=== PATIENT | female | born 1990 | race Caucasian/White ===

== ENCOUNTER 2016-03-28 05:49 | Emergency (ER) | payer MEDICARE, BC, MEDICAID ==
[2016-03-28 06:23] LABS: Prothrombin Time 13.2 SEC (12.0-14.7)
[2016-03-28 06:26] LABS: Hematocrit 31.2 % (36.0-47.0); Mean Platelet Volume 6.2 fL (7.4-10.4); Red Blood Cell (RBC) Count 3.41 mill/uL (4.20-5.40); White Blood Cell (WBC) Count 5.5 thou/uL (4.8-10.8)
[2016-03-28 06:30] LABS: ALT (SGPT) 20 U/L (0-55); AST (SGOT) 17 U/L (5-34); Alkaline Phosphatase 96 U/L (40-150); Anion Gap 23 mmol/L (10-20); BUN (Urea Nitrogen) 58 mg/dL (7.0-18.7); Bilirubin, Total 0.7 mg/dL (0.2-1.2); Calc. Creatinine Clearance 0 mL/min (70-130); Calcium 11.1 mg/dL (7.8-10.44); Carbon Dioxide 30 mmol/L (22-29); Chloride 90 mmol/L (98-107); Estimated GFR-MDRD 3; Globulin 4.5 g/dL (2.4-3.5); Protein, Total 8.9 g/dL (6.0-8.3)
[2016-03-28 06:39] LABS: Neutrophil 43 % (42-75); Reactive Lymphocytes 4 % (0-10)
--- NOTE | 2016-03-28 08:21 | ERRECORD ---
[facility] EMERGENCY RECORD HPI SYNCOPE (06:16 [facility]) CHIEF COMPLAINT: Patient presents for evaluation of syncope. 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 Patient performed regular PD, but removed 2500cc of fluid rather than the normal 1300. She was feeling nauseous, and at 430 after a bowel movement she felt lightheaded then awoke on the bathroom floor. Currently she feels weak and lightheaded. Denies pain, denies blood in vomit or stool, denies chest or abdominal discomfort, denies fever at home. LOCATION: Symptoms are generalized. QUALITY: Symptom quality described as lightheadedness. TIME COURSE: Gradual onset of symptoms, There has been no change in the patient's symptoms over time. ASSOCIATED WITH: No associated abdominal pain, No associated back pain, No associated chest pain, No associated diarrhea, Associated with fall, from standing, No associated GI Bleed, Associated with weakness. EXACERBATED BY: Patient's condition exacerbated by nothing. RELIEVED BY: Nothing tried for relief. ROS (06:20 [facility]) CONSTITUTIONAL: Historian denies chills, denies fever, reports weakness. EYES: Negative eye review of systems, Historian denies eye pain, denies vision changes. ENT: Negative ears, nose, throat review of systems, Historian denies rhinorrhea, denies sore throat, denies voice changes. CARDIOVASCULAR: Historian denies chest pain, reports syncope, denies palpitations. RESPIRATORY: Negative respiratory review of systems, Historian denies cough, denies shortness of breath. GI: Negative gastrointestinal review of systems, Historian denies abdominal pain, denies constipation, denies diarrhea, denies nausea, denies vomiting. GENITOURINARY FEMALE: Negative genitourinary review of systems, Historian denies dysuria, denies frequency. MUSCULOSKELETAL: Negative musculoskeletal review of systems, Historian denies back pain, denies fall, denies injury. SKIN: Negative skin review of systems, Historian denies rash, denies skin changes. NEUROLOGIC: Negative neurologic review of systems, Historian denies headache, denies mental status changes, denies paralysis, denies paresthesias, denies sensory changes. HEMO/LYMPHATIC: Normal hematologic/lymphatic system review, Historian denies abnormal blood clotting. ALLERGIC/IMMUNOLOGIC: Normal allergy/immunologic system review, Historian denies frequent infections. &a-1R&a+25V*p+0X*m2076C*c202B*c15G*c2P*p-0X&a-25V&a+1R Name: Oumou Castro : 1990 F26 MedRec: [id number] AcctNum: [id number] Prepared: Corby Mar 28, 2016 08:31 by Interface Page 1 of 5 pMD [facility] EMERGENCY RECORD PAST MEDICAL HISTORY (05:59 [facility]IL) MEDICAL HISTORY: Flu vaccine up to date, Tetanus immunization up to date, Pneumococcal vaccine up to date, Flu vaccine up to date, Date of immunization: 09/2015, Tetanus immunization up to date, Pneumococcal vaccine up to date, Date of immunization: 2015, pt has hemodialysis qhs, Past medical history includes gastrointestinal disease, gastroesophageal reflux disease, H. Pylori, Past medical history includes endocrine disease, hypothyroidism, Past medical history includes end stage renal disease, Notes: tuberus sclerosis,. Past medical history includes renal disease, polycystic kidney, failure. reviewed 12/29/15. Notes: ESRD on dialysis, Tuberous Sclerosis, Past medical history includes endocrine disease, hypothyroidism, Past medical history includes history of hypertension. REVIEWED 02/06/16. REVIEWED 03/28/16. FEMALE SURGICAL HISTORY: dialysis port (PERITONEAL), hemo port, bilateral kidney removal. peritoneal dialysis port. Reviewed 12/29/15. bilateral nephrectomy, dialysis port, peritoneal dialysis catheter. REVIEWED 02/06/16. REVIEWED 03/28/16. PSYCHIATRIC HISTORY: Notes: NO PREVIOUS HX. REVIEWED 03/28/16. SOCIAL HISTORY: Patient denies alcohol use, Patient denies drug use, Patient has no smoking history. REVIEWED 02/06/16. REVIEWED 03/28/16. KNOWN ALLERGIES Bromfed tablet Singulair: Reaction: Hives CURRENT MEDICATIONS (07:19 LGIB) Sensipar: TABLET : Strength - 60 mg : ORAL Patient Dose: 120 mg Oral once a day. calcitriol: CAPSULE : Strength - 0.5 mcg : ORAL Patient Dose: 0.5 mcg Oral.EVERY OTHER DAY. levothyroxine: TABLET : Strength - 50 mcg : ORAL Patient Dose: 50 mcg Oral.except on sundays takes 100mcg once a day. omeprazole: CAPSULE,DELAYED RELEASE (ENTERIC COATED) : Strength - 20 mg : ORAL Patient Dose: 20 mg Oral 2 times a day. Vitamin D (with calcium): TABLET : Strength - 77 mg-400 unit : ORAL Patient Dose: 3000 units Oral once a day. medroxyPROGESTERone: TABLET : Strength - 2.5 mg : ORAL Patient Dose: Unknown.7 days once a month. ferrous sulfate: TABLET : Strength - 325 mg (65 mg iron) : ORAL &a-1R&a+25V*p+0X*m7130O*c202B*c15G*c2P*p-0X&a-25V&a+1R Name: Oumou Castro : 1990 F26 MedRec: [id number] AcctNum: [id number] Prepared: Corby Mar 28, 2016 08:31 by Interface Page 2 of 5 pMD [facility] EMERGENCY RECORD Patient Dose: 325 mg once a day. Renvela: TABLET : Strength - 800 mg : ORAL Patient Dose: 6 tab(s) Oral 3 times a day (with meals). carvedilol: TABLET : Strength - 6.25 mg : ORAL Patient Dose: 2 tab(s) Oral 2 times a day. VITAL SIGNS VITAL SIGNS: BP: 68/47, Pulse: 111, Resp: 21, Temp: 98.0 (Oral), Pain: 4, O2 sat: 98 on Room Air, Time: 03/28/2016 05:50. (05:50 MVIL) BP: 61/50, Pulse: 111, Resp: 20, O2 sat: 100 on Room Air, Time: 03/28/2016 05:56. (05:56 MVIL) BP: 72/42, Pulse: 91, Resp: 11, O2 sat: 98 on Room Air, Time: 03/28/2016 06:34. (06:34 MVIL) BP: 74/49, Pulse: 93, Resp: 16, O2 sat: 98 on Room Air, Time: 03/28/2016 06:45. (06:45 KMOR) BP: 75/47, Pulse: 85, Resp: 17 (Non-Labored), O2 sat: 98 on Room Air, Time: 03/28/2016 07:00. (07:00 LGIB) BP: 74/48, Pulse: 86, Resp: 18 (Non-Labored), O2 sat: 97 on Room Air, Time: 03/28/2016 07:30. (07:30 LGIB) Temp: 98.2 (Oral), Time: 03/28/2016 07:49. (07:49 LGIB) BP: 79/46, Pulse: 91, Resp: 17 (Non-Labored), O2 sat: 97 on Room Air, Time: 03/28/2016 07:45. (07:45 LGIB) BP: 88/53, Pulse: 88, Time: 03/28/2016 08:00. (08:00 LGIB) BP: 98/68, Pulse: 84, Resp: 18 (Non-Labored), O2 sat: 97 on Room Air, Time: 03/28/2016 08:06. (08:06 [facility]) PHYSICAL EXAM (06:20 [facility]) CONSTITUTIONAL: Vital Signs Reviewed, Patient afebrile, Pulse, tachycardic, Blood pressure, hypotensive, Respiratory rate normal, Patient appears non toxic, Patient appears pain free, Patient alert and oriented to person, place and time, Nursing notes reviewed. HEAD: Head exam normal, Head exam included findings of head atraumatic, normocephalic. EYES: Eye exam normal, Eye exam included findings of eyelids normal to inspection, Pupils equally round and reactive to light, Extraocular muscles intact, no nystagmus. ENT: ENT exam normal, Ear exam normal, external ear normal, tympanic membranes normal, no bleeding, Pharynx exam normal, Uvula exam normal, Tonsil exam normal, Mouth exam normal, mucous membranes moist, teeth normal. NECK: Neck exam normal, Neck exam included findings of normal range of motion, Trachea midline, no meningeal signs, no cervical adenopathy, no tenderness. RESPIRATORY CHEST: Respiratory and chest exam normal, Respiratory exam included findings of no respiratory distress, Breath sounds clear. CARDIOVASCULAR: Cardiovascular assessment normal, Cardiovascular &a-1R&a+25V*p+0X*v6619F*c202B*c15G*c2P*p-0X&a-25V&a+1R Name: Oumou Castro : 1990 [facility] MedRec: [id number] AcctNum: [id number] Prepared: felix Mar 28, 2016 08:31 by Interface Page 3 of 5 pMD [facility] EMERGENCY RECORD exam included findings of heart rate regular rate and rhythm, Heart sounds normal. ABDOMEN FEMALE: Abdominal exam included findings of abdomen nontender, Bowel sounds normal, no distension, no mass, no pulsatile masses, no peritoneal signs, no rigidity, no guarding, no rebound, Rovsing's sign absent. BACK: Back exam normal, Back exam included findings of normal inspection, range of motion normal, no tenderness. UPPER EXTREMITY: Upper extremity exam normal, Upper extremity exam included findings of inspection normal, Range of motion normal, Motor strength normal, Sensation intact, Radial pulse normal. LOWER EXTREMITY: Lower extremity exam normal, Lower extremity exam included findings of inspection normal, Range of motion normal, Motor strength normal, Sensation intact, Posterior tibial pulse normal, Pedal pulse normal. NEURO: Neuro exam normal, Neuro exam findings include patient oriented to person, place and time, Speech normal, Gait normal, Cranial nerves intact, no focal motor deficits, no focal sensory deficits. SKIN: Skin exam normal, Skin exam included findings of skin warm, dry, and normal in color, no rash. PSYCHIATRIC: Psychiatric exam normal, Normal affect. MEDICATION ADMINISTRATION SUMMARY Drug Name: *sodium chloride 0.9 % intravenous, Dose Ordered: 1 L, Route: IV Fluid Infusion, Status: Given, Time: 07:18 03/28/2016, Drug Name: *sodium chloride 0.9 % intravenous, Dose Ordered: 500 mL, Route: IV Fluid Infusion, Status: Given, Time: 06:38 03/28/2016, Drug Name: *sodium chloride 0.9 % intravenous, Dose Ordered: 500 mL, Route: IV Fluid Infusion, Status: Given, Time: 06:11 03/28/2016, *Additional information available in notes, Detailed record available in Medication Service section. DOCTOR NOTES TEXT: Patient presented with hypotension and tachycardia. Most likely diagnosis was fluid depletion secondary to peritoneal dialysis removal. Considered alternative diagnoses such as sepsis, blood loss, cardiac tamponade, or neurologic dysfunction, but felt they were less likely based on history and physical exam findings. Bedside US showed no evidence of tamponade, and patient had normal physical exam. IV fluid rehydration performed with improvement in symptoms and vital signs. (06:21 [facility]) PATIENT STATUS: Patient has improved since arrival to emergency department. (08:14 [facility]) PATIENT PLAN: The patient will be discharged, The patient will follow up with primary care physician. (08:14 [facility]) PROBLEM LIST No recorded problems &a-1R&a+25V*p+0X*p3635V*c202B*c15G*c2P*p-0X&a-25V&a+1R Name: Oumou Castro : 1990 F26 MedRec: [id number] AcctNum: [id number] Prepared: SunMar 28, 2016 08:31 by Interface Page 4 of 5 pMD [facility] EMERGENCY RECORD DIAGNOSIS (08:10 [facility]) FINAL: PRIMARY: OTHER HYPOTENSION. PRESCRIPTION No recorded prescriptions DISPOSITION PATIENT: Disposition Type: Discharge, Disposition: *Discharge Home. (08:10 [facility]) Patient left the department. (08:25 [facility]) Major: JEROME=MD Maia, Lex WORKMAN=MYRIAM Dasilva, Janeth LGIB=MYRIAM Rainey, Carmelina MVIL=MYRIAM Velasquez, Alea &a-1R&a+25V*p+0X*h7648B*c202B*c15G*c2P*p-0X&a-25V&a+1R Name: Oumou Castro : 1990 F26 MedRec: [id number] AcctNum: [id number] Prepared: SunMar 28, 2016 08:31 by Interface Page 5 of 5 pMD MTDD
--- NOTE | 2016-03-28 08:27 | PICIS ---
[facility] EMERGENCY RECORD TRIAGE (05:55 MVIL) TRIAGE NOTES: PATIENT ON DIALYSIS AT HOME. SYNCOPIZED IN BATHROOM AT 4:45AM. C/O GENERALIZED WEAKNESS. DIALYSIS OUTPUT 2300MLS. (05:55 MVIL) PATIENT: NAME: Oumou Castro, AGE: 26, GENDER: female, : Sun 1990, TIME OF GREET: SunMar 28, 2016 05:49, PREFERRED LANGUAGE: Kyrgyz, ETHNICITY: Not or , ECODE BILLING MAP: [facility], SSN: [id number], Zip Code: [address], KG WEIGHT: 73.48, PHONE: , , , PERSON ID: [id number], PAYMENT: [employer] Medicare, PCP: OSCAR. (05:55 MVIL) COMPLAINT: Syncope and Collapse. (05:55 MVIL) ADMISSION: URGENCY: 3 Urgent, ADMISSION SOURCE: Home, TRANSPORT: CAR, BED: ER -03. (05:55 MVIL) ASSESSMENT: Assessment: C/O SYNCOPIZING IN BATHROOM AT 4:45AM TODAY AFTER DOING AT HOME DIALYSIS FROM 5P YESTERDAY EVENING TIL 2:30AM TODAY. PATIENT STATES OUTPUT WAS 2300MLS., Symptoms began 03/28/2016 05:57, Symptoms began 2 hours ago. (05:59 MVIL) PAIN: Patient complains of pain described as, aching, Location GENERALIZED WEAKNESS, Pain is constant, Onset was 03/28/2016 05:58, No aggravating factors, No relieving factors. (05:59 MVIL) IMMUNIZATIONS: Flu vaccine up to date, Tetanus immunization up to date, Pneumococcal vaccine up to date. (05:59 MVIL) SIRS SCORING: Heart Rate 110-139 (2), Temp range 96.8-101.1 (0), respiratory rate 12-24 (0), Mental Status altered: no (0), Total SIRS Score 2. (05:59 MVIL) TREATMENTS IN PROGRESS: Patient on commercial real estate appraiser, Rhythm: SINUS TACHY. (05:59 MVIL) PROVIDERS: TRIAGE NURSE: Alea Velasquez RN. (05:55 MVIL) VITAL SIGNS: BP 68/47, Pulse 111, Resp 21, Temp 98.0, (Oral), Pain 4, O2 Sat 98, on Room Air, Time 03/28/2016 05:50. (05:50 MVIL) BP 61/50, Pulse 111, Resp 20, O2 Sat 100, on Room Air, Time 03/28/2016 05:56. (05:56 MVIL) KNOWN ALLERGIES Bromfed tablet Singulair: Reaction: Hives CURRENT MEDICATIONS (07:19 LGIB) Sensipar: TABLET : Strength - 60 mg : ORAL Patient Dose: 120 mg Oral once a day. calcitriol: CAPSULE : Strength - 0.5 mcg : ORAL Patient Dose: 0.5 mcg Oral.EVERY OTHER DAY. levothyroxine: TABLET : Strength - 50 mcg : ORAL Patient Dose: 50 mcg Oral.except on sundays takes 100mcg once a day. &a-1R&a+25V*p+0X*[id number]*c202B*c15G*c2P*p-0X&a-25V&a+1R Name: Oumou Castro : 1990 F26 MedRec: [id number] AcctNum: [id number] Prepared: SunMar 28, 2016 08:37 by Interface Page 1 of 9 pMD [facility] EMERGENCY RECORD omeprazole: CAPSULE,DELAYED RELEASE (ENTERIC COATED) : Strength - 20 mg : ORAL Patient Dose: 20 mg Oral 2 times a day. Vitamin D (with calcium): TABLET : Strength - 77 mg-400 unit : ORAL Patient Dose: 3000 units Oral once a day. medroxyPROGESTERone: TABLET : Strength - 2.5 mg : ORAL Patient Dose: Unknown.7 days once a month. ferrous sulfate: TABLET : Strength - 325 mg (65 mg iron) : ORAL Patient Dose: 325 mg once a day. Renvela: TABLET : Strength - 800 mg : ORAL Patient Dose: 6 tab(s) Oral 3 times a day (with meals). carvedilol: TABLET : Strength - 6.25 mg : ORAL Patient Dose: 2 tab(s) Oral 2 times a day. VITAL SIGNS VITAL SIGNS: BP: 68/47, Pulse: 111, Resp: 21, Temp: 98.0 (Oral), Pain: 4, O2 sat: 98 on Room Air, Time: 03/28/2016 05:50. (05:50 MVIL) BP: 61/50, Pulse: 111, Resp: 20, O2 sat: 100 on Room Air, Time: 03/28/2016 05:56. (05:56 MVIL) BP: 72/42, Pulse: 91, Resp: 11, O2 sat: 98 on Room Air, Time: 03/28/2016 06:34. (06:34 MVIL) BP: 74/49, Pulse: 93, Resp: 16, O2 sat: 98 on Room Air, Time: 03/28/2016 06:45. (06:45 KMOR) BP: 75/47, Pulse: 85, Resp: 17 (Non-Labored), O2 sat: 98 on Room Air, Time: 03/28/2016 07:00. (07:00 LGIB) BP: 74/48, Pulse: 86, Resp: 18 (Non-Labored), O2 sat: 97 on Room Air, Time: 03/28/2016 07:30. (07:30 LGIB) Temp: 98.2 (Oral), Time: 03/28/2016 07:49. (07:49 LGIB) BP: 79/46, Pulse: 91, Resp: 17 (Non-Labored), O2 sat: 97 on Room Air, Time: 03/28/2016 07:45. (07:45 LGIB) BP: 88/53, Pulse: 88, Time: 03/28/2016 08:00. (08:00 LGIB) BP: 98/68, Pulse: 84, Resp: 18 (Non-Labored), O2 sat: 97 on Room Air, Time: 03/28/2016 08:06. (08:06 LGIB) NURSING ASSESSMENT: CARDIOVASCULAR (06:00 MVIL) CONSTITUTIONAL: Patient arrives ambulatory, Unsteady gait, Assistance to cart, UPON ER ARRIVAL USED WHEELCHAIR, History obtained from patient, Patient appears comfortable, Patient cooperative, Patient alert, Oriented to person, place and time, Skin warm, Skin dry, Skin, pale in color, Mucous membranes pink, Mucous membranes moist, Patient is well-groomed, Patient complains of SYNCOPE, DIALYSIS AT HOME TODAY. PAIN: aching pain, generalized, ALL OVER, on a scale 0-10 patient rates pain as 3, Pain exacerbated &a-1R&a+25V*p+0X*[id number]*c202B*c15G*c2P*p-0X&a-25V&a+1R Name: Oumou Castro : 1990 F26 MedRec: [id number] AcctNum: [id number] Prepared: Corby Mar 28, 2016 08:37 by Interface Page 2 of 9 pMD [facility] EMERGENCY RECORD by nothing, Nothing has been tried to alleviate the pain. CARDIOVASCULAR: Cardiovascular assessment findings include heart rate, tachycardic, Rate 111, Heart rhythm, sinus tachycardia, Heart sounds normal, Left radial pulse +4(strong and bounding), Right radial pulse +4(strong and bounding), Left dorsalis pedis pulse +4(strong and bounding), Right dorsalis pedis pulse +4(strong and bounding), Associated with dizziness, described as room spinning, Associated with palpitations described as, Associated with, syncopal event, Time of event: 445AM, AT HOME IN BATHROOM, Associated with weakness, GENERALIZED, No history of pulmonary embolism, No history of DVT or leg swelling. NOTES: Emotional support needed and given. SAFETY: Side rails up, Cart/Stretcher in lowest position, Family at bedside, Call light within reach, Hospital ID band on. NURSING PROCEDURE: BEDSIDE RADIOLOGY (07:25 LGIB) BEDSIDE RADIOLOGY: Portable chest x-ray performed. NURSING PROCEDURE: DISCHARGE NOTE (08:16 LGIB) DISCHARGE: Patient discharged to home, ambulating without assistance, family driving, accompanied by parent, Summary of Care printed/ provided, Patient requested and was provided an electronic copy of Discharge Instructions, Discharge instructions given to patient, Simple or moderate discharge teaching performed, Above person(s) verbalized understanding of discharge instructions and follow-up care, Patient treated and evaluated by physician. BELONGINGS: Belongings and valuables with patient at time of discharge include:, Belongings remain with patient, Valuables remain with patient. NURSING PROCEDURE: IV (06:00 KMOR) PATIENT IDENITIFIER: Patient actively involved in identification process, Patient's identity verified by patient stating name, Patient's identity verified by patient stating date. IV SITE 1: IV therapy indicated for hydration, IV therapy indicated for medication administration, IV established, to the right antecubital, using a 20 gauge catheter, in one attempt, Saline lock established, Flushed with normal saline (mls): 10cc, Labs drawn at time of placement, labeled in the presence of the patient and sent to lab. FOLLOW-UP SITE 1: After procedure, 2x3 ensure dressing applied, After procedure, no drainage at IV site, After procedure, no swelling at IV site, After procedure, no redness at IV site. NOTES: Patient tolerated procedure well. NURSING PROCEDURE: NURSE NOTES NURSES NOTES: Notes: Pt report from MYRIAM Cosby. Pt resting, NAD, RR even and unlabored. (06:55 LGIB) &a-1R&a+25V*p+0X*b1937G*c202B*c15G*c2P*p-0X&a-25V&a+1R Name: Oumou Castro : 1990 F26 MedRec: [id number] AcctNum: [id number] Prepared: SunMar 28, 2016 08:37 by Interface Page 3 of 9 pMD [facility] EMERGENCY RECORD Notes: Pt resting, no needs at this time. NAD. Family at bedside. (07:34 LGIB) Notes: cereal, juice and yogurt given to patient for breakfast. Pt in high oneil's to eat. (07:57 LGIB) Notes: Pt states she is feeling much better at this time. (08:07 LGIB) NURSING PROCEDURE: POSITIONING (07:15 LGIB) POSITIONING: Patient placed in side lying position on the left, head of bed elevated, (degrees) 15. ORDER DETAILS Order Name: CBC with Differential, Status: Active, Time: 06:12 03/28/2016, User: JEROME, - Ordered for: MD Carvalho Jason, - Entered by: MD Carvalho Jason - Corby Mar 28, 2016 06:12, - Quantity: 1, Order Name: Comprehensive Metabolic Panel, Status: Active, Time: 06:12 03/28/2016, User: JEROME, - Ordered for: MD Carvalho Jason, - Entered by: MD Carvalho Jason - Corby Mar 28, 2016 06:12, - Quantity: 1, Order Name: Protime with INR, Status: Active, Time: 06:12 03/28/2016, User: JEROEM, - Ordered for: MD Carvalho Jason, - Entered by: MD Carvalho Jason - felix Mar 28, 2016 06:12, - Quantity: 1, Order Name: SALINE LOCK, Status: Done, Time: 06:12 03/28/2016, User: JI, - Ordered for: MD Carvalho Jason, - Entered by: MD Carvalho Jason - Tue Mar 28, 2016 06:12, - Quantity: 1, Order Name: XR Chest 1 View Portable, Status: Active, Time: 07:15 03/28/2016, User: JEROME, - Ordered for: MD Carvalho Jason, - Entered by: MD Carvalho Jason - felix Mar 28, 2016 07:15, - Quantity: 1. MEDICATION ADMINISTRATION SUMMARY Drug Name: *sodium chloride 0.9 % intravenous, Dose Ordered: 1 L, Route: IV Fluid Infusion, Status: Given, Time: 07:18 03/28/2016, Drug Name: *sodium chloride 0.9 % intravenous, Dose Ordered: 500 mL, Route: IV Fluid Infusion, Status: Given, Time: 06:38 03/28/2016, Drug Name: *sodium chloride 0.9 % intravenous, Dose Ordered: 500 mL, Route: IV Fluid Infusion, Status: Given, Time: 06:11 03/28/2016, *Additional information available in notes, Detailed record available in Medication Service section. &a-1R&a+25V*p+0X*f7301L*c202B*c15G*c2P*p-0X&a-25V&a+1R Name: Oumou Castro : 1990 F26 MedRec: [id number] AcctNum: [id number] Prepared: SunMar 28, 2016 08:37 by Interface Page 4 of 9 pMD [facility] EMERGENCY RECORD MEDICATION SERVICE sodium chloride 0.9 % intravenous: Order: sodium chloride 0.9 % intravenous (0.9 % sodium chloride) - Dose: 500 mL : IV Fluid Infusion Schedule: Now Notes: (Bolus) Read back and verified Ordered by: Lex Carvalho MD Entered by: Janeth Dasilva RN SunMar 28, 2016 06:10 Documented as given by: Janeth Dasilva RN SunMar 28, 2016 06:11 Patient, Medication, Dose, Route and Time verified prior to administration. Amount given: 1000ml, IV SITE #1 IV fluids established for hydration, IV SITE #1 into right antecubital, IV SITE #1 1st bag hung, amount 1 Liter hung, IV SITE #1 bolus of 500 ml established, via primary tubing, IV SITE #1 on IV pump, Catheter placement confirmed via flush prior to administration, IV site without signs or symptoms of infiltration during medication administration, No swelling during administration, No drainage during administration, IV flushed after administration, Correct patient, time, route, dose and medication confirmed prior to administration, Patient advised of actions and side-effects prior to administration, Allergies confirmed and medications reviewed prior to administration, Patient in position of comfort, Side rails up, Cart in lowest position, Family at bedside. : Follow Up : Response assessment performed, No signs or symptoms of allergic reaction noted, _IV SITE #1:_, IV fluid infusion discontinued, on SunMar 28, 2016 06:40, 30 minutes, ., Total amount infused: 500ml. (06:40 KMOR) sodium chloride 0.9 % intravenous: Order: sodium chloride 0.9 % intravenous (0.9 % sodium chloride) - Dose: 500 mL : IV Fluid Infusion Notes: (Bolus) Ordered by: Lex Carvalho MD Entered by: Lex Carvalho MD SunMar 28, 2016 06:37 Documented as given by: Janeth Dasilva RN SunMar 28, 2016 06:38 Patient, Medication, Dose, Route and Time verified prior to administration. Amount given: 500ml, IV SITE #1 IV fluids established for hydration, IV SITE #1 into right antecubital, IV SITE #1 bolus of 500 ml established, via primary tubing, IV SITE #1 on IV pump, Catheter placement confirmed via flush prior to administration, IV site without signs or symptoms of infiltration during medication administration, No swelling during administration, No drainage during administration, IV flushed after administration, Correct patient, time, route, dose and medication confirmed prior to administration, Patient advised of actions and side-effects prior to administration, Allergies confirmed and medications reviewed prior to administration, Patient in position of comfort, Side rails up, Cart in lowest position, Family at bedside. &a-1R&a+25V*p+0X*y4699N*c202B*c15G*c2P*p-0X&a-25V&a+1R Name: Oumou Castro : 1990 F26 MedRec: [id number] AcctNum: [id number] Prepared: SunMar 28, 2016 08:37 by Interface Page 5 of 9 pMD [facility] EMERGENCY RECORD : Follow Up : Response assessment performed, No signs or symptoms of allergic reaction noted, _IV SITE #1:_, IV fluid infusion discontinued, on SunMar 28, 2016 07:10, 35 minutes, ., Total amount infused: 500ml. (07:15 LGIB) sodium chloride 0.9 % intravenous: Order: sodium chloride 0.9 % intravenous (0.9 % sodium chloride) - Dose: 1 L : IV Fluid Infusion Notes: (Bolus) Ordered by: Lex Carvalho MD Entered by: Lex Carvalho MD SunMar 28, 2016 07:48 Documented as given by: Carmelina Rainey RN SunMar 28, 2016 07:18 Patient, Medication, Dose, Route and Time verified prior to administration. IV SITE #1 IV fluids established for hydration, IV SITE #1 into right antecubital, IV SITE #1 2nd bag hung, amount 1 Liter hung, IV SITE #1 Rate of infusion (non-bolus) Infusing at 1000 ml/hr, via primary tubing, IV SITE #1 on IV pump, Catheter placement confirmed via flush prior to administration, IV site without signs or symptoms of infiltration during medication administration, No swelling during administration, No drainage during administration, IV flushed after administration, Correct patient, time, route, dose and medication confirmed prior to administration, Patient advised of actions and side-effects prior to administration, Allergies confirmed and medications reviewed prior to administration, Patient in position of comfort, Side rails up, Cart in lowest position, Family at bedside. : Follow Up : Response assessment performed, No signs or symptoms of allergic reaction noted, _IV SITE #1:_, IV fluid infusion discontinued, on SunMar 28, 2016 08:16, ., Total amount infused: 1 liter. (08:16 LGIB) HPI SYNCOPE (06:16 [facility]) CHIEF COMPLAINT: Patient presents for evaluation of syncope. 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 Patient performed regular PD, but removed 2500cc of fluid rather than the normal 1300. She was feeling nauseous, and at 430 after a bowel movement she felt lightheaded then awoke on the bathroom floor. Currently she feels weak and lightheaded. Denies pain, denies blood in vomit or stool, denies chest or abdominal discomfort, denies fever at home. LOCATION: Symptoms are generalized. QUALITY: Symptom quality described as lightheadedness. TIME COURSE: Gradual onset of symptoms, There has been no change in the patient's symptoms over time. ASSOCIATED WITH: No associated abdominal pain, No associated back pain, No associated chest pain, No associated diarrhea, Associated with fall, from standing, No associated GI Bleed, Associated with weakness. EXACERBATED BY: Patient's condition exacerbated by nothing. &a-1R&a+25V*p+0X*j8947Z*c202B*c15G*c2P*p-0X&a-25V&a+1R Name: Oumou Castro : 1990 F26 MedRec: [id number] AcctNum: [id number] Prepared: Corby Mar 28, 2016 08:37 by Interface Page 6 of 9 pMD [facility] EMERGENCY RECORD RELIEVED BY: Nothing tried for relief. ROS (06:20 [facility]) CONSTITUTIONAL: Historian denies chills, denies fever, reports weakness. EYES: Negative eye review of systems, Historian denies eye pain, denies vision changes. ENT: Negative ears, nose, throat review of systems, Historian denies rhinorrhea, denies sore throat, denies voice changes. CARDIOVASCULAR: Historian denies chest pain, reports syncope, denies palpitations. RESPIRATORY: Negative respiratory review of systems, Historian denies cough, denies shortness of breath. GI: Negative gastrointestinal review of systems, Historian denies abdominal pain, denies constipation, denies diarrhea, denies nausea, denies vomiting. GENITOURINARY FEMALE: Negative genitourinary review of systems, Historian denies dysuria, denies frequency. MUSCULOSKELETAL: Negative musculoskeletal review of systems, Historian denies back pain, denies fall, denies injury. SKIN: Negative skin review of systems, Historian denies rash, denies skin changes. NEUROLOGIC: Negative neurologic review of systems, Historian denies headache, denies mental status changes, denies paralysis, denies paresthesias, denies sensory changes. HEMO/LYMPHATIC: Normal hematologic/lymphatic system review, Historian denies abnormal blood clotting. ALLERGIC/IMMUNOLOGIC: Normal allergy/immunologic system review, Historian denies frequent infections. PAST MEDICAL HISTORY (05:59 MVIL) MEDICAL HISTORY: Flu vaccine up to date, Tetanus immunization up to date, Pneumococcal vaccine up to date, Flu vaccine up to date, Date of immunization: 09/2015, Tetanus immunization up to date, Pneumococcal vaccine up to date, Date of immunization: 2015, pt has hemodialysis qhs, Past medical history includes gastrointestinal disease, gastroesophageal reflux disease, H. Pylori, Past medical history includes endocrine disease, hypothyroidism, Past medical history includes end stage renal disease, Notes: tuberus sclerosis,. Past medical history includes renal disease, polycystic kidney, failure. reviewed 12/29/15. Notes: ESRD on dialysis, Tuberous Sclerosis, Past medical history includes endocrine disease, hypothyroidism, Past medical history includes history of hypertension. REVIEWED 02/06/16. REVIEWED 03/28/16. FEMALE SURGICAL HISTORY: dialysis port (PERITONEAL), hemo port, bilateral kidney removal. peritoneal dialysis port. Reviewed 12/29/15. bilateral nephrectomy, dialysis port, peritoneal dialysis catheter. REVIEWED 02/06/16. REVIEWED 03/28/16. PSYCHIATRIC HISTORY: Notes: NO PREVIOUS HX. REVIEWED 03/28/16. &a-1R&a+25V*p+0X*o5827E*c202B*c15G*c2P*p-0X&a-25V&a+1R Name: Oumou Castro : 1990 F26 MedRec: [id number] AcctNum: [id number] Prepared: Corby Mar 28, 2016 08:37 by Interface Page 7 of 9 pMD [facility] EMERGENCY RECORD SOCIAL HISTORY: Patient denies alcohol use, Patient denies drug use, Patient has no smoking history. REVIEWED 02/06/16. REVIEWED 03/28/16. PHYSICAL EXAM (06:20 [facility]) CONSTITUTIONAL: Vital Signs Reviewed, Patient afebrile, Pulse, tachycardic, Blood pressure, hypotensive, Respiratory rate normal, Patient appears non toxic, Patient appears pain free, Patient alert and oriented to person, place and time, Nursing notes reviewed. HEAD: Head exam normal, Head exam included findings of head atraumatic, normocephalic. EYES: Eye exam normal, Eye exam included findings of eyelids normal to inspection, Pupils equally round and reactive to light, Extraocular muscles intact, no nystagmus. ENT: ENT exam normal, Ear exam normal, external ear normal, tympanic membranes normal, no bleeding, Pharynx exam normal, Uvula exam normal, Tonsil exam normal, Mouth exam normal, mucous membranes moist, teeth normal. NECK: Neck exam normal, Neck exam included findings of normal range of motion, Trachea midline, no meningeal signs, no cervical adenopathy, no tenderness. RESPIRATORY CHEST: Respiratory and chest exam normal, Respiratory exam included findings of no respiratory distress, Breath sounds clear. CARDIOVASCULAR: Cardiovascular assessment normal, Cardiovascular exam included findings of heart rate regular rate and rhythm, Heart sounds normal. ABDOMEN FEMALE: Abdominal exam included findings of abdomen nontender, Bowel sounds normal, no distension, no mass, no pulsatile masses, no peritoneal signs, no rigidity, no guarding, no rebound, Rovsing's sign absent. BACK: Back exam normal, Back exam included findings of normal inspection, range of motion normal, no tenderness. UPPER EXTREMITY: Upper extremity exam normal, Upper extremity exam included findings of inspection normal, Range of motion normal, Motor strength normal, Sensation intact, Radial pulse normal. LOWER EXTREMITY: Lower extremity exam normal, Lower extremity exam included findings of inspection normal, Range of motion normal, Motor strength normal, Sensation intact, Posterior tibial pulse normal, Pedal pulse normal. NEURO: Neuro exam normal, Neuro exam findings include patient oriented to person, place and time, Speech normal, Gait normal, Cranial nerves intact, no focal motor deficits, no focal sensory deficits. SKIN: Skin exam normal, Skin exam included findings of skin warm, dry, and normal in color, no rash. PSYCHIATRIC: Psychiatric exam normal, Normal affect. EVENTS &a-1R&a+25V*p+0X*w8209Z*c202B*c15G*c2P*p-0X&a-25V&a+1R Name: Oumou Castro : 1990 F26 MedRec: [id number] AcctNum: [id number] Prepared: SunMar 28, 2016 08:37 by Interface Page 8 of 9 pMD [facility] EMERGENCY RECORD TRANSFER: Triage to Emergency Emergency Room -03. (SunMar 28, 2016 05:55 MVIL) Removed from Emergency Emergency Room -03. (08:25 LGIB) DOCTOR NOTES TEXT: Patient presented with hypotension and tachycardia. Most likely diagnosis was fluid depletion secondary to peritoneal dialysis removal. Considered alternative diagnoses such as sepsis, blood loss, cardiac tamponade, or neurologic dysfunction, but felt they were less likely based on history and physical exam findings. Bedside US showed no evidence of tamponade, and patient had normal physical exam. IV fluid rehydration performed with improvement in symptoms and vital signs. (06:21 JJA) PATIENT STATUS: Patient has improved since arrival to emergency department. (08:14 [facility]) PATIENT PLAN: The patient will be discharged, The patient will follow up with primary care physician. (08:14 [facility]) PROBLEM LIST No recorded problems DIAGNOSIS (08:10 [facility]) FINAL: PRIMARY: OTHER HYPOTENSION. DISPOSITION PATIENT: Disposition Type: Discharge, Disposition: *Discharge Home. (08:10 JJAC) Patient left the department. (08:25 LGIB) INSTRUCTION (08:11 JJA) DISCHARGE: LOW BLOOD PRESSURE ALL CAUSES. SPECIAL: Lots of fluids over the next day. Careful with removal tonight. If your breathing worsens today/tonight, return to the ED or see PMD. PRESCRIPTION No recorded prescriptions IMAGING (08:32 LGIB) *DISCHARGE INSTRUCTIONS RECEIPT: Image captured from scanner. *SUPPLY CHARGE SHEET: Image captured from scanner. ADMIN (08:14 [facility]) DIGITAL SIGNATURE: MD Carvalho Jason. Major: JEROME=MD Caravlho Jason KMOR=MYRIAM Dasilva, Janeth LGIB=MYRIAM Rainey, Carmelina MVIL=MYRIAM Velasquez, Alea &a-1R&a+25V*p+0X*a4345E*c202B*c15G*c2P*p-0X&a-25V&a+1R Name: Oumou Castro : 1990 F26 MedRec: [id number] AcctNum: [id number] Prepared: Corby Mar 28, 2016 08:37 by Interface Page 9 of 9 pMD MTDD
--- NOTE | 2016-03-28 21:47 | RAD ---
PORTABLE CHEST 03/28/16 An AP portable film at 0715 is compared with a 02/06/16 study. The heart is normal in size and the lungs are clear. No infiltrate or effusion was seen. There is no vascular congestion or edema. The mediastinum appears normal and the trachea is midline. IMPRESSION: No acute thoracic findings. POS: HOME
== END 2016-03-28 08:16 | disposition home or self-care (01) ==
LOC: BURERS 05:49
DX: I95.89 Other hypotension (principal); K21.9 Gastro-esophageal reflux disease without esophagitis; E03.9 Hypothyroidism, unspecified; N18.6 End stage renal disease
CPT/HCPCS: 71010; 80053; 85025; 85610; 96360; 96361

== ENCOUNTER 2016-06-06 05:55 | Emergency (ER) | payer MEDICARE, BC, MEDICAID ==
[2016-06-06] MEDS ORDERED: Morphine Sulfate 2 MG/ML SYRINGE ONE (06:36)
[2016-06-06] MEDS ORDERED: Promethazine HCl 25 MG/ML VIAL ONE (06:37)
[2016-06-06] MEDS ORDERED: Ondansetron HCl/PF 4 MG/2 ML Vial ONE (06:37)
[2016-06-06 07:00] LABS: Anion Gap 20 mmol/L (10-20); BUN (Urea Nitrogen) 69 mg/dL (7.0-18.7); Calc. Creatinine Clearance 0 mL/min (70-130); Carbon Dioxide 31 mmol/L (22-29); Chloride 93 mmol/L (98-107); Estimated GFR-MDRD 3; Glucose 94 mg/dL (70-105); Potassium 4.8 mmol/L (3.5-5.1); Sodium 139 mmol/L (136-145)
[2016-06-06 07:02] LABS: #Basophils 0.1 thou/uL (0.0-0.2); #Eosinphils 0.5 thou/uL (0.0-0.7); #Lymphocytes 1.8 thou/uL (1.20-3.40); #Monocytes 0.4 thou/uL (0.11-0.59); %Basophils 1.6 % (0.0-1.0); %Eosinophils 8.2 % (0.0-10.0); %Lymphocytes 31.3 % (21.0-51.0); %Monocytes 6.9 % (0.0-10.0); %Neutrophils 52.1 % (42.0-75.0); Hemoglobin 11.3 g/dL (12.0-16.0); Mean Corpuscular HGB CONC 34.4 g/dL (32.0-36.0); Mean Corpuscular Hemoglobin 32.8 pg (27.0-31.0); Mean Corpuscular Volume 95.5 fl (81.0-99.0); Mean Platelet Volume 5.6 fL (7.4-10.4); Platelet Count 161 thou/uL (130-400); RBC Distribution Width 13.8 % (11.5-14.5); Red Blood Cell (RBC) Count 3.45 mill/uL (4.20-5.40); White Blood Cell (WBC) Count 5.7 thou/uL (4.8-10.8)
== END 2016-06-06 08:14 | disposition home or self-care (01) ==
LOC: BURERS 05:55
DX: I12.0 Hypertensive chronic kidney disease with stage 5 chronic kidney disease or end stage renal disease (principal); N18.6 End stage renal disease; K21.9 Gastro-esophageal reflux disease without esophagitis; Z79.899 Other long term (current) drug therapy
CPT/HCPCS: 80048; 85025; 96365; 96375; J2270; J2405; J2550

== ENCOUNTER 2016-06-10 16:50 | Emergency (ER) | payer MEDICARE, BC, MEDICAID ==
[2016-06-10] MEDS ORDERED: Cyclobenzaprine 10 MG TAB ONE (19:05)
--- NOTE | 2016-06-10 21:09 | RAD ---
CHEST TWO VIEWS 06/10/16 The heart seems slightly larger than I would expect for the patient's age and body habitus. I am not sure it is markedly different than the 03/31/16 study, however. The vasculature shows no congestion. No effusions are seen. The mediastinum was unremarkable. A linear streak in the left mid lung may b e a tiny strip of atelectasis. IMPRESSION: No definite acute findings, though cardiac size seems slightly generous. Code T POS: HOME
== END 2016-06-10 19:13 | disposition home or self-care (01) ==
LOC: BURERS 16:50
DX: S23.3XXA Sprain of ligaments of thoracic spine, initial encounter (principal); I12.0 Hypertensive chronic kidney disease with stage 5 chronic kidney disease or end stage renal disease; N18.6 End stage renal disease; K21.9 Gastro-esophageal reflux disease without esophagitis; E03.9 Hypothyroidism, unspecified; Z99.2 Dependence on renal dialysis; X58.XXXA Exposure to other specified factors, initial encounter
CPT/HCPCS: 71020

== ENCOUNTER 2016-06-16 12:10 | Outpatient (CLI) | payer MEDICARE, BC, MEDICAID ==
[2016-06-16 13:10] LABS: #Basophils 0.1 thou/uL (0.0-0.2); #Eosinphils 0.8 thou/uL (0.0-0.7); #Lymphocytes 2.5 thou/uL (1.20-3.40); #Monocytes 0.7 thou/uL (0.11-0.59); #Neutrophils 3.4 thou/uL (1.40-6.50); %Basophils 1.4 % (0.0-1.0); %Eosinophils 10.8 % (0.0-10.0); %Lymphocytes 33.4 % (21.0-51.0); %Monocytes 8.8 % (0.0-10.0); %Neutrophils 45.6 % (42.0-75.0); Hemoglobin 9.8 g/dL (12.0-16.0); Mean Corpuscular HGB CONC 33.1 g/dL (32.0-36.0); Mean Corpuscular Hemoglobin 32.9 pg (27.0-31.0); Mean Corpuscular Volume 99.5 fl (81.0-99.0); Mean Platelet Volume 5.4 fL (7.4-10.4); Platelet Count 235 thou/uL (130-400); RBC Distribution Width 14.3 % (11.5-14.5); Red Blood Cell (RBC) Count 2.98 mill/uL (4.20-5.40); White Blood Cell (WBC) Count 7.5 thou/uL (4.8-10.8)
[2016-06-16 13:20] LABS: ALT (SGPT) 12 U/L (0-55); AST (SGOT) 14 U/L (5-34); Albumin 3.3 g/dL (3.5-5.0); Alkaline Phosphatase 105 U/L (40-150); Anion Gap 18 mmol/L (10-20); BUN (Urea Nitrogen) 68 mg/dL (7.0-18.7); Bilirubin, Total 0.5 mg/dL (0.2-1.2); Calc. Creatinine Clearance 0 mL/min (70-130); Calcium 9.2 mg/dL (7.8-10.44); Carbon Dioxide 34 mmol/L (22-29); Chloride 92 mmol/L (98-107); Estimated GFR-MDRD 3; Glucose 87 mg/dL (70-105); Potassium 5.6 mmol/L (3.5-5.1); Protein, Total 6.3 g/dL (6.0-8.3); Sodium 138 mmol/L (136-145)
== END 2016-06-16 12:11 | disposition home or self-care (01) ==
LOC: BURLAB 12:10
PROVIDERS: ATTEND Urology
DX: C64.2 Malignant neoplasm of left kidney, except renal pelvis (principal)
CPT/HCPCS: 36415; 80053; 82024; 85025

== ENCOUNTER 2016-07-03 19:52 | Emergency (ER) | payer MEDICARE, BC, MEDICAID ==
[2016-07-03] MEDS ORDERED: Milk Of Magnesia 30 ML UDCUP ONE (20:15)
[2016-07-03] MEDS ORDERED: Lidocaine Viscous Sol 2% 15 ml UD Cup ONE (20:15)
[2016-07-03 21:10] LABS: #Basophils 0.1 thou/uL (0.0-0.2); #Eosinphils 0.7 thou/uL (0.0-0.7); #Lymphocytes 2.6 thou/uL (1.20-3.40); #Monocytes 0.6 thou/uL (0.11-0.59); %Basophils 1.5 % (0.0-1.0); %Eosinophils 9.4 % (0.0-10.0); %Lymphocytes 37.5 % (21.0-51.0); %Monocytes 8.4 % (0.0-10.0); %Neutrophils 43.2 % (42.0-75.0); Hemoglobin 9.3 g/dL (12.0-16.0); Mean Corpuscular HGB CONC 34.4 g/dL (32.0-36.0); Mean Corpuscular Hemoglobin 32.3 pg (27.0-31.0); Mean Corpuscular Volume 93.8 fl (81.0-99.0); Mean Platelet Volume 5.7 fL (7.4-10.4); Platelet Count 145 thou/uL (130-400); RBC Distribution Width 13.2 % (11.5-14.5); Red Blood Cell (RBC) Count 2.89 mill/uL (4.20-5.40)
[2016-07-03 21:23] LABS: ALT (SGPT) 21 U/L (0-55); AST (SGOT) 18 U/L (5-34); Albumin 3.3 g/dL (3.5-5.0); Alkaline Phosphatase 133 U/L (40-150); Anion Gap 16 mmol/L (10-20); BUN (Urea Nitrogen) 91 mg/dL (7.0-18.7); Bilirubin, Total 0.4 mg/dL (0.2-1.2); CK (CPK) 49 U/L (29-168); CKMB 0.6 ng/mL (0-6.6); Calc. Creatinine Clearance 0 mL/min (70-130); Calcium 8.4 mg/dL (7.8-10.44); Carbon Dioxide 31 mmol/L (22-29); Chloride 95 mmol/L (98-107); Estimated GFR-MDRD 3; Globulin 2.1 g/dL (2.4-3.5); Glucose 92 mg/dL (70-105); Lipase 66 U/L (8-78); Potassium 5.3 mmol/L (3.5-5.1); Protein, Total 5.4 g/dL (6.0-8.3); Sodium 137 mmol/L (136-145); Troponin I Less than 0.010 ng/mL (< 0.028)
[2016-07-03 23:23] LABS: Troponin I Less than 0.010 ng/mL (< 0.028)
== END 2016-07-03 23:50 | disposition home or self-care (01) ==
LOC: BURERS 19:52
DX: R07.2 Precordial pain (principal); K21.9 Gastro-esophageal reflux disease without esophagitis; E03.9 Hypothyroidism, unspecified; I12.0 Hypertensive chronic kidney disease with stage 5 chronic kidney disease or end stage renal disease; N18.6 End stage renal disease; Z79.899 Other long term (current) drug therapy
CPT/HCPCS: 36415; 80053; 82550; 82553; 83690; 84484; 85025; 93005; 94760; 96374; J2270

== ENCOUNTER 2016-08-02 20:15 | Emergency (ER) | payer MEDICARE, BC, MEDICAID ==
[2016-08-02] MEDS ORDERED: Diazepam 5 MG TAB ONE (20:30)
[2016-08-02 20:49] LABS: #Basophils 0.1 thou/uL (0.0-0.2); #Eosinphils 0.1 thou/uL (0.0-0.7); #Lymphocytes 1.1 thou/uL (1.20-3.40); #Monocytes 0.3 thou/uL (0.11-0.59); #Neutrophils 7.9 thou/uL (1.40-6.50); %Basophils 0.6 % (0.0-1.0); %Eosinophils 0.5 % (0.0-10.0); %Lymphocytes 12.1 % (21.0-51.0); %Monocytes 3.3 % (0.0-10.0); %Neutrophils 83.5 % (42.0-75.0); Hemoglobin 12.2 g/dL (12.0-16.0); Mean Corpuscular HGB CONC 33.7 g/dL (32.0-36.0); Mean Corpuscular Hemoglobin 33.7 pg (27.0-31.0); Mean Corpuscular Volume 99.8 fl (81.0-99.0); Platelet Count 211 thou/uL (130-400); RBC Distribution Width 16.4 % (11.5-14.5); Red Blood Cell (RBC) Count 3.64 mill/uL (4.20-5.40); White Blood Cell (WBC) Count 9.4 thou/uL (4.8-10.8)
[2016-08-02 21:19] LABS: ALT (SGPT) 14 U/L (8-55); AST (SGOT) 14 U/L (5-34); Albumin 3.8 g/dL (3.5-5.0); Alkaline Phosphatase 160 U/L (40-150); Anion Gap 21 mmol/L (10-20); BUN (Urea Nitrogen) 97 mg/dL (7.0-18.7); Bilirubin, Total 0.6 mg/dL (0.2-1.2); CK (CPK) 39 U/L (29-168); Calc. Creatinine Clearance 0 mL/min (70-130); Calcium 7.7 mg/dL (7.8-10.44); Carbon Dioxide 29 mmol/L (22-29); Chloride 94 mmol/L (98-107); Estimated GFR-MDRD 3; Globulin 2.4 g/dL (2.4-3.5); Glucose 107 mg/dL (70-105); Protein, Total 6.2 g/dL (6.0-8.3); Sodium 136 mmol/L (136-145)
[2016-08-02 21:27] LABS: Potassium 7.5 mmol/L (3.5-5.1)
[2016-08-02] MEDS ORDERED: Insulin Regular 300 UNITS/3 ML VIAL ONE (21:40)
[2016-08-02] MEDS ORDERED: Calcium Chloride 1 GM/10 ML Abboject SYRINGE ONE (21:40)
[2016-08-02] MEDS ORDERED: Ondansetron HCl/PF 4 MG/2 ML Vial ONE (21:40)
[2016-08-02] MEDS ORDERED: Dextrose 50% Abboject 50 ML SYRINGE ONE ×2 (21:49→21:51)
[2016-08-02 23:06] LABS: Potassium 5.6 mmol/L (3.5-5.1)
[2016-08-02 23:07] LABS: Calcium 7.8 mg/dL (7.8-10.44)
== END 2016-08-02 23:00 | disposition home or self-care (01) ==
LOC: BURERS 20:15
DX: G62.9 Polyneuropathy, unspecified (principal); K21.9 Gastro-esophageal reflux disease without esophagitis; E03.9 Hypothyroidism, unspecified; I12.0 Hypertensive chronic kidney disease with stage 5 chronic kidney disease or end stage renal disease; N18.6 End stage renal disease; Z79.899 Other long term (current) drug therapy
CPT/HCPCS: 36415; 80053; 82550; 85025; 96374; 96375; J1815; J2405

== ENCOUNTER 2016-08-07 18:27 | Emergency (ER) | payer MEDICARE, BC, MEDICAID | END 2016-08-07 18:45 | disposition home or self-care (01) | LOC: BURERS 18:27 | DX: I80.8 Phlebitis and thrombophlebitis of other sites (principal); E11.9 Type 2 diabetes mellitus without complications; Z79.899 Other long term (current) drug therapy | CPT/HCPCS: 99283 ==

== ENCOUNTER 2016-09-15 22:04 | Emergency (ER) | payer MEDICARE, BC, MEDICAID ==
[2016-09-15] MEDS ORDERED: Gentamicin Ophth Soln 0.3% 5 ml Bottle ONE (22:19)
== END 2016-09-15 22:38 | disposition home or self-care (01) ==
LOC: BURERS 22:04
DX: H10.9 Unspecified conjunctivitis (principal); K21.9 Gastro-esophageal reflux disease without esophagitis; E03.9 Hypothyroidism, unspecified; I12.0 Hypertensive chronic kidney disease with stage 5 chronic kidney disease or end stage renal disease; N18.6 End stage renal disease; Z79.2 Long term (current) use of antibiotics; Z79.82 Long term (current) use of aspirin; Z79.899 Other long term (current) drug therapy
CPT/HCPCS: 99282

== ENCOUNTER 2017-09-01 20:42 | Emergency (ER) | payer MEDICARE, MEDICAID ==
[2017-09-01] MEDS ORDERED: Bacitracin Zinc 1 Packet ONE (21:14)
== END 2017-09-01 22:20 | disposition home or self-care (01) ==
LOC: BURERS 20:42
DX: S91.311A Laceration without foreign body, right foot, initial encounter (principal); K21.9 Gastro-esophageal reflux disease without esophagitis; E03.9 Hypothyroidism, unspecified; I12.0 Hypertensive chronic kidney disease with stage 5 chronic kidney disease or end stage renal disease; N18.6 End stage renal disease; Z79.899 Other long term (current) drug therapy; Z79.891 Long term (current) use of opiate analgesic; W26.9XXA Contact with unspecified sharp object(s), initial encounter
CPT/HCPCS: 99283

== ENCOUNTER 2018-01-07 14:49 | Emergency (ER) | payer MEDICARE, MEDICAID ==
[2018-01-07] MEDS ORDERED: AMOXicillin 250 MG CAP ONE (15:10)
== END 2018-01-07 15:13 | disposition home or self-care (01) ==
LOC: BURERS 14:49
DX: J01.90 Acute sinusitis, unspecified (principal); K21.9 Gastro-esophageal reflux disease without esophagitis; E03.9 Hypothyroidism, unspecified; I10 Essential (primary) hypertension; Z79.891 Long term (current) use of opiate analgesic; Z79.899 Other long term (current) drug therapy
CPT/HCPCS: 99283

== ENCOUNTER 2018-01-23 13:40 | Emergency (ER) | payer MEDICARE, MEDICAID | END 2018-01-23 14:20 | disposition home or self-care (01) | LOC: BURERS 13:40 | DX: M25.511 Pain in right shoulder (principal); K21.9 Gastro-esophageal reflux disease without esophagitis; E03.9 Hypothyroidism, unspecified; I12.0 Hypertensive chronic kidney disease with stage 5 chronic kidney disease or end stage renal disease; N18.6 End stage renal disease; Z79.899 Other long term (current) drug therapy; Z99.2 Dependence on renal dialysis | CPT/HCPCS: 99281 ==

== ENCOUNTER 2018-03-31 06:21 | Emergency (ER) | payer MEDICARE, MEDICAID | END 2018-03-31 06:53 | disposition home or self-care (01) | LOC: BURERS 06:21 | DX: J06.9 Acute upper respiratory infection, unspecified (principal); K21.9 Gastro-esophageal reflux disease without esophagitis; E03.9 Hypothyroidism, unspecified; I12.0 Hypertensive chronic kidney disease with stage 5 chronic kidney disease or end stage renal disease; N18.6 End stage renal disease; Z79.899 Other long term (current) drug therapy | CPT/HCPCS: 99283 ==

== ENCOUNTER 2018-06-27 15:33 | Emergency (ER) | payer MEDICARE, MEDICAID | END 2018-06-27 16:00 | disposition home or self-care (01) | LOC: BURERS 15:33 | DX: S86.912A Strain of unspecified muscle(s) and tendon(s) at lower leg level, left leg, initial encounter (principal); W01.0XXA Fall on same level from slipping, tripping and stumbling without subsequent striking against object, initial encounter | CPT/HCPCS: 99283 ==

== ENCOUNTER 2018-08-30 18:32 | Emergency (ER) | payer MEDICARE, OTHER ==
[2018-08-30] MEDS ORDERED: Ibuprofen 800 MG TAB ONE (18:51)
[2018-08-30] MEDS ORDERED: traMADol HCl 50 MG TAB ONE (18:51)
--- NOTE | 2018-08-30 20:13 | RAD ---
LEFT FOOT THREE VIEWS: 08/30/18 No overt fracture was seen. There is some soft tissue swelling on the dorsum of the forefoot. There is a tiny bony density along side the medial aspect of the fifth metatarsal shaft. I doubt that this is related to current trauma, however, if the patient should have pain in the fifth metatarsal shaft, then a repeat study in 7-10 days should be done. The remainder of the foot and tarsal bones ap peared normal. IMPRESSION: Probably negative study, but see comments above regarding the fifth metatarsal shaft. Code T POS: HOME
== END 2018-08-30 18:59 | disposition home or self-care (01) ==
LOC: BURERS 18:32
DX: S90.32XA Contusion of left foot, initial encounter (principal); I10 Essential (primary) hypertension; K21.9 Gastro-esophageal reflux disease without esophagitis; W22.8XXA Striking against or struck by other objects, initial encounter

== ENCOUNTER 2019-02-09 07:53 | Emergency (ER) | payer MEDICARE, OTHER ==
[2019-02-09] MEDS ORDERED: predniSONE 20 MG TAB ONE (08:38)
== END 2019-02-09 08:40 | disposition home or self-care (01) ==
LOC: BURERS 07:53
DX: J06.9 Acute upper respiratory infection, unspecified (principal); K21.9 Gastro-esophageal reflux disease without esophagitis; I10 Essential (primary) hypertension; Z79.899 Other long term (current) drug therapy
CPT/HCPCS: 99283; J7512

== ENCOUNTER 2019-02-12 18:12 | Emergency (ER) | payer OTHER, MEDICARE ==
[2019-02-12] MEDS ORDERED: Oseltamivir 75 MG CAP ONE (18:36)
== END 2019-02-12 18:35 | disposition home or self-care (01) ==
LOC: BURERS 18:12
DX: J11.1 Influenza due to unidentified influenza virus with other respiratory manifestations (principal); D89.9 Disorder involving the immune mechanism, unspecified; K21.9 Gastro-esophageal reflux disease without esophagitis; I10 Essential (primary) hypertension; E03.9 Hypothyroidism, unspecified; Z79.899 Other long term (current) drug therapy; Z79.891 Long term (current) use of opiate analgesic
CPT/HCPCS: 99283

== ENCOUNTER 2019-06-11 15:46 | Emergency (ER) | payer MEDICARE, OTHER, MEDICAID | END 2019-06-11 16:15 | disposition home or self-care (01) | LOC: BURERS 15:46 | DX: J45.991 Cough variant asthma (principal); E03.9 Hypothyroidism, unspecified; K21.9 Gastro-esophageal reflux disease without esophagitis; I10 Essential (primary) hypertension; Z79.899 Other long term (current) drug therapy | CPT/HCPCS: 99283 ==

== ENCOUNTER 2020-12-11 17:00 | Emergency (ER) | payer MEDICARE, OTHER | END 2020-12-11 17:57 | disposition home or self-care (01) | LOC: BURERS 17:00 | DX: U07.1 COVID-19 (principal); Z79.899 Other long term (current) drug therapy; Z79.52 Long term (current) use of systemic steroids; E03.9 Hypothyroidism, unspecified; K21.9 Gastro-esophageal reflux disease without esophagitis; I10 Essential (primary) hypertension | CPT/HCPCS: 99284 ==

== ENCOUNTER 2020-12-18 12:16 | Emergency (ER) | payer MEDICARE, OTHER | END 2020-12-18 12:51 | disposition home or self-care (01) | LOC: BURERS 12:16 | DX: U07.1 COVID-19 (principal); R11.2 Nausea with vomiting, unspecified; E03.9 Hypothyroidism, unspecified; K21.9 Gastro-esophageal reflux disease without esophagitis; I10 Essential (primary) hypertension; Z79.899 Other long term (current) drug therapy | CPT/HCPCS: 99284 ==

== ENCOUNTER 2021-05-31 18:07 | Emergency (ER) | payer BC, MEDICARE ==
[2021-05-31] MEDS ORDERED: Acetaminophen 500 MG TAB PO ONE (18:08)
[2021-05-31] MEDS ORDERED: Promethazine HCl 25 MG/ML VIAL FS ONE (18:08)
== END 2021-05-31 20:02 | disposition home or self-care (01) ==
LOC: BURERS 18:07
DX: R51.9 Headache, unspecified (principal); R11.2 Nausea with vomiting, unspecified; K21.9 Gastro-esophageal reflux disease without esophagitis; I12.0 Hypertensive chronic kidney disease with stage 5 chronic kidney disease or end stage renal disease; N18.6 End stage renal disease; E03.9 Hypothyroidism, unspecified; Z99.2 Dependence on renal dialysis; Z79.899 Other long term (current) drug therapy
CPT/HCPCS: 96374; J2550

== ENCOUNTER 2021-10-23 16:41 | Emergency (ER) | payer BC, MEDICARE, MEDICAID ==
[2021-10-23 17:22] LABS: #Basophils 0.1 thou/uL (0.0-0.2); #Eosinphils 0.2 thou/uL (0.0-0.7); #Lymphocytes 2.2 thou/uL (1.20-3.40); #Monocytes 0.9 thou/uL (0.11-0.59); #Neutrophils 6.9 thou/uL (1.40-6.50); %Basophils 0.5 % (0.0-1.0); %Eosinophils 1.7 % (0.0-10.0); %Lymphocytes 21.3 % (21.0-51.0); %Monocytes 8.9 % (0.0-10.0); %Neutrophils 67.7 % (42.0-75.0); Hemoglobin 8.8 g/dL (12.0-16.0); Mean Corpuscular HGB CONC 33.3 g/dL (32.0-36.0); Mean Corpuscular Hemoglobin 32.5 pg (27.0-31.0); Mean Corpuscular Volume 97.7 fL (78.0-98.0); Mean Platelet Volume 6.4 fL (7.4-10.4); Platelet Count 194 thou/uL (130-400); RBC Distribution Width 14.4 % (11.5-14.5); White Blood Cell (WBC) Count 10.2 thou/uL (4.8-10.8)
[2021-10-23] MEDS ORDERED: Albuterol Sulfate 2.5 mg/3 ml Neb ONE (17:24)
[2021-10-23 17:39] LABS: ALT (SGPT) 10 U/L (8-55); AST (SGOT) 14 U/L (5-34); Albumin 3.7 g/dL (3.5-5.0); Alkaline Phosphatase 41 U/L (40-110); Anion Gap 21 mmol/L (10-20); BUN (Urea Nitrogen) 35 mg/dL (7.0-18.7); Bilirubin, Total 0.6 mg/dL (0.2-1.2); Calc. Creatinine Clearance 0 mL/min (70-130); Carbon Dioxide 27 mmol/L (22-29); Chloride 93 mmol/L (98-107); Estimated GFR 6; Globulin 3.8 g/dL (2.4-3.5); Glucose 98 mg/dL (70-105); Potassium 4.5 mmol/L (3.5-5.1); Protein, Total 7.5 g/dL (6.0-8.3); Sodium 136 mmol/L (136-145)
[2021-10-23] MEDS ORDERED: Nitroglycerin 2% Ointment 1 INCH/1 GM Packet ONE (18:03)
== END 2021-10-23 19:30 | disposition short-term general hospital (02) ==
LOC: BURERS 16:41
DX: I13.2 Hypertensive heart and chronic kidney disease with heart failure and with stage 5 chronic kidney disease, or end stage renal disease (principal); I50.9 Heart failure, unspecified; N18.6 End stage renal disease; Z99.2 Dependence on renal dialysis; E03.9 Hypothyroidism, unspecified
CPT/HCPCS: 71045; 80053; 83880; 84484; 85025; 93005; J7611

== ENCOUNTER 2021-11-07 10:03 | Emergency (ER) | payer BC, MEDICARE, MEDICAID ==
[2021-11-07] MEDS ORDERED: predniSONE 20 MG TAB ONE (12:05)
== END 2021-11-07 12:39 | disposition home or self-care (01) ==
LOC: BURERS 10:03
DX: J20.9 Acute bronchitis, unspecified (principal); I12.0 Hypertensive chronic kidney disease with stage 5 chronic kidney disease or end stage renal disease; N18.6 End stage renal disease; Z99.2 Dependence on renal dialysis
CPT/HCPCS: 71046; J7512

== ENCOUNTER 2022-02-12 10:31 | Emergency (ER) | payer MEDICAID, OTHER | END 2022-02-12 11:36 | disposition home or self-care (01) | LOC: BURERS 10:31 | DX: B86 Scabies (principal); E78.5 Hyperlipidemia, unspecified; K21.9 Gastro-esophageal reflux disease without esophagitis; E03.9 Hypothyroidism, unspecified; J45.909 Unspecified asthma, uncomplicated; I12.0 Hypertensive chronic kidney disease with stage 5 chronic kidney disease or end stage renal disease; N18.6 End stage renal disease; Z99.2 Dependence on renal dialysis | CPT/HCPCS: 99282 ==

== ENCOUNTER 2024-02-18 14:08 | Emergency (ER) | payer MEDICARE, OTHER ==
[2024-02-18] MEDS ORDERED: Boostrix 0.5 ML (Tdap) VIAL (>/=7 yrs of age) ONE (15:47)
== END 2024-02-18 16:02 | disposition home or self-care (01) ==
LOC: BURERS 14:08
DX: S61.212A Laceration without foreign body of right middle finger without damage to nail, initial encounter (principal); I13.11 Hypertensive heart and chronic kidney disease without heart failure, with stage 5 chronic kidney disease, or end stage renal disease; N18.6 End stage renal disease; W26.8XXA Contact with other sharp object(s), not elsewhere classified, initial encounter; Y93.89 Activity, other specified; Z23 Encounter for immunization; Z99.2 Dependence on renal dialysis
CPT/HCPCS: 12001; 90471; 90715